=== PATIENT | male | born 1970 | race Caucasian/White ===

== ENCOUNTER 2018-12-16 08:37 | Outpatient (REF) | payer MEDICARE, MEDICAID, SELFPAY ==
[2018-12-16 13:03] LABS: ALT 29 U/L (12-78); AST 20 U/L (15-37); Alkaline Phosphatase 76 U/L (46-116); Bilirubin, Total 0.5 mg/dL (0.2-1.0); Cholesterol 165 mg/dL (50-200); HDL Cholesterol 43 mg/dL (40-60); LDL CHOLESTEROL 113 mg/dL (<100); Total Protein 7.2 g/dL (6.4-8.2); Triglyceride 70 mg/dL (30-150)
[2018-12-16 13:19] LABS: Bilirubin, Direct 0.12 mg/dL (0.00-0.20)
== END 2018-12-16 08:57 ==
LOC: NCHCN 08:37
PROVIDERS: PCP Nurse Practitioner Family; Visit Provider Nurse Practitioner Family
DX: E66.9 Obesity, unspecified (principal)
CPT/HCPCS: 80061; 80076; 83721

== ENCOUNTER 2020-03-01 12:43 | Emergency (ER) | payer MEDICARE, MEDICAID, SELFPAY ==
[2020-03-01] VITALS (52 sets, daily range): BP systolic 116–149; BP diastolic 66–100; PULSE 0–150; RESP 12–28; TEMP 36.6–37.3; O2SAT 91–100
[2020-03-01 13:28] LABS: Abs Immature Grans 0.02 k/cumm (0.0-0.09); Absolute Basophil Count 0.01 k/cumm (0.0-0.2); Absolute Eosinophil Count 0.01 k/cumm (0.0-0.7); Absolute Lymphocyte Count 1.33 k/cumm (1.2-3.4); Absolute Monocyte Count 0.67 k/cumm (0.11-0.7); Absolute Neutrophil Count 8.39 k/cumm (1.2-6.7); Basophils % 0.1; Eosinophils % 0.1; HCT 44.2 % (40.0-50.0); HGB 14.9 g/dL (13.5-17.5); Immature Grans % 0.2 %; Lymphocytes % 12.8; Mean Corp. HGB Concentration 33.7 g/dL (32.0-36.0); Mean Corpuscular Hemoglobin 27.6 pg (27.0-33.0); Mean Corpuscular Volume 81.9 fL (80-95); Mean Platelet Volume 10.9 fL (8.0-11.0); Monocytes % 6.4; Neutrophils % 80.4; Platelet Count 201 x1000/uL (130-400); RBC Distribution Width 13.2 % (11.8-14.1); White Blood Cell Count 10.43 k/cumm (4.4-10.8)
[2020-03-01] MEDS: Normal Saline 1,000 ML 1000 ML IV ×2 (13:28→17:34)
[2020-03-01 13:42] LABS: ALT 40 U/L (16-63); AST 21 U/L (15-37); Albumin 3.9 g/dL (3.4-5.0); Alkaline Phosphatase 69 U/L (46-116); Anion Gap 9.2 mmol/L (3-11); BUN 17 mg/dL (7-18); CO2 26.8 mmol/L (21.0-32.0); CREATININE 1.18 mg/dL (0.70-1.30); Chloride 101 mmol/L (98-107); Glucose 119 mg/dL (74-106); Potassium 3.8 mmol/L (3.5-5.1); Sodium 137 mmol/L (136-145); Total Protein 7.4 g/dL (6.4-8.2)
[2020-03-01] MEDS: diphenhydrAMINE 50 MG/ML VIAL 25 MG IVP (13:53)
[2020-03-01] MEDS: methylPREDNISolone SUCC 125 MG VIAL IVP (13:53)
[2020-03-01] MEDS: FAMOTIDINE 20 MG/50 ML BAG 200 MG IVPB (13:53)
[2020-03-01 13:57] LABS: TSH (W/Ref FT4) 0.43 uIU/mL (0.36-3.74)
[2020-03-01 14:07] LABS: Magnesium 1.9 mg/dL (1.8-2.4); Troponin I < 0.05 ng/mL (<0.06)
[2020-03-01 16:29] LABS: Troponin I < 0.05 ng/mL (<0.06)
[2020-03-01 16:42] LABS: D-Dimer 1349 ng/mlFEU (<500)
--- NOTE | 2020-03-01 16:47 | ED.GENADUL_ITS ---
Discharge Plan Disposition Patient Disposition: HOME Condition: Stable Discharge Details Chief Complaint: RashLesion Clinical Impression: Allergic reaction caused by a drug, Anxiety Primary Care Provider: Aleyda Hamilton ED Provider: Gladis Brooks Home Meds and New Rx's Prescriptions: New hydroxyzine HCl 25 mg tablet 25 mg PO BID PRN (Reason: itching) 5 Days Qty: 10 RF: 0 Discontinued amoxicillin 500 mg Tablet 500 mg TID RF: 0 No Action omeprazole 20 mg Capsule,Delayed Release(Dr/Ec) 20 mg DAILY RF: 0 prednisone 20 mg tablet 60 mg PO DAILY Qty: 12 RF: 0 clindamycin HCl 300 mg capsule 300 mg PO TID Qty: 30 RF: 0 Discharge Instructions Instructions: Anxiety (ED), General Allergic Reaction (ED) Additional Instructions: Follow up with primary care provider in 3-5 days. Return to ED sooner if any worsening or concerns. Increase oral fluids. Take medications as directed. Referrals: Aleyda Hamilton [Primary Care Provider] - Discharge Data Discharge Date/Time-TO BE ENTERED AT DEPARTURE: 03/01/20 19:15 Medical Decision Making <Gladis Brooks - Last Filed: 03/01/20 23:12> 1647: Assumed care of patient from outgoing provider TIFFANY Winston. Patient presented to the ED for shortness of breath, tachycardia. D-dimer is elevated at 1349, he does endorse some mild swelling noted to his lower extremities. Chest CT PE protocol ordered, BUN and creatinine are within normal limits. Patient is alert and oriented, in no acute distress. CT chest negative for pulmonary embolism. Patient reevaluated, discussed increasing fluids, will prescribe hydroxyzine for anxiety, itching. Patient does endorse an anxiety. Patient is hemodynamically stable, discussed strict return instructions and follow-up care, patient verbalized understanding. <TIFFANY Rubi - Last Filed: 03/02/20 15:49> This is a 49-year-old gentleman presenting to the emergency room for concern of allergic reaction. Patient presents with diffuse hives. Patient reports onset of hives yesterday morning. Did take Benadryl yesterday without relief. Patient reports mild associated midline chest pain which patient attributed to reflux as patient does have a history of reflux. He did take omeprazole this morning without relief. Patient currently taking amoxicillin for a tooth infection. Started the course 7 days ago. Patient denies any perioral or sensation of throat swelling. Patient denies shortness of breath. Patient does report he is aware of his heart rate being fast. Denies difficulty breathing. Denies abdominal pain, nausea or vomiting. Patient denies any obvious new exposures outside of recent course of antibiotics. Patient reports the rash began after eating breakfast. He reports he had Gumaro charms for breakfast which is very typical. Patient does report the rash is quite itchy. On physical exam rashes consistent with hives. Patient has no obvious focal swelling or signs of angioedema. Patient is notably tachycardic on initial presentation with a heart rate between 130 and 140. Given patient's complaints of chest pain we will plan to obtain an EKG. We will plan to provide IV fluid. We will plan to check labs. Patient's differential diagnosis of patient's chest pain does include allergic reaction, ACS although this seems less likely given patient's age and presentation today, reflux remains in the differential, dehydration, patient's tachycardia PE remains in the differential the patient describes no difficulty breathing or shortness of breath wheezing or cough. Denies exertional component. Patient's EKG reveals sinus tachycardia. Heart rate of 113. QTC noted to be 444. No ST segment changes. This was reviewed with Claudia Castillo. Patient's labs reveal no leukocytosis. CBC within normal limits. TSH normal. Initial troponin normal. Patient's chest x-ray reveals no acute abnormality. Reevaluation the patient reveals significant improvement in his hives. Patient reports his chest pain is improved. He does still have noted tachycardia although significantly improved from presentation will give additional 1 L of IV fluid. Patient was reevaluated by Dr. Castillo who does recommend addition of d-dimer. Also recommends GI cocktail. Patient signed out pending d-dimer results to onckrystle Sepulveda. HPI <Gladis Brooks - Last Filed: 03/01/20 23:12> General Date/Time Provider Initiated Documentation: 03/01/20 13:09 . Related Data Home Medications Medication Instructions Recorded Confirmed hydroxyzine HCl 25 mg PO BID PRN 5 Days #10 tab 03/01/20 omeprazole 20 mg DAILY 03/01/20 03/01/20 clindamycin HCl 300 mg PO TID #30 cap 03/02/20 prednisone 60 mg PO DAILY #12 tab 03/02/20 Previous Rx's Medication Instructions Recorded hydroxyzine HCl 25 mg PO BID PRN 5 Days #10 tab 03/01/20 clindamycin HCl 300 mg PO TID #30 cap 03/02/20 prednisone 60 mg PO DAILY #12 tab 03/02/20 Allergies Allergy/AdvReac Type Severity Reaction Status Date / Time amoxicillin Allergy Intermediate Unverified 03/01/20 13:58 General Stated Complaint: RashLesion ANGELICA: 3 <TIFFANY Rubi - Last Filed: 03/02/20 15:49> HPI Narrative: This is a 49-year-old patient presenting to the emergency room for complaints of rash. Patient reports he has been taking amoxicillin due to dental infection. Patient reports yesterday morning after breakfast he began to have a hive-like rash. Patient reports he had gumaro terms her breakfast which is very typical. Rash is described as itchy. Patient reports rash continues to spread today despite use of Benadryl at home. Patient has widespread hives. Patient denies any swelling around his mouth or involving his neck or throat. Patient denies difficulty breathing shortness of breath or wheezing. Patient does report chest pain anteriorly which he felt was likely due to reflux. He did take omeprazole this morning which was on relieving of his chest pain. Patient denies any radiating symptoms into neck, jaw, shoulder or back. Patient does report his heart does seem like it is racing, noted this morning, persistent. Patient denies any dizziness or lightheadedness. Patient denies any nausea or vomiting. Denies abdominal pain. Urinating without difficulty, moving bowels without difficulty. Eating and drinking without difficulty. No voice change. Patient denies fevers or chills. Patient denies any obvious Covid exposures recently. <TIFFANY Rubi - Last Filed: 03/02/20 15:49> All systems reviewed & are unremarkable except as noted in HPI and below PFSH <Gladis Brooks - Last Filed: 03/01/20 23:12> Social History Smoking/Tobacco Use Status: Never Alcohol Intake: current Alcohol Intake frequency: holidays/special occasions only Drug use: Never Substance use type: does not use Do you feel safe at home: Yes Do you feel safe in your relationship?: Yes <TIFFANY Rubi - Last Filed: 03/02/20 15:49> Narrative Exam Narrative: CONST: Healthy appearing patient, in no acute distress. Well hydrated. Alert and oriented. HENMT: Head nomocephalic, normal to inspection. Atraumatic. Hearing grossly normal. Normal facial exam. Oral mucosa normal. Tounge normal. Dentition normal. Normal posterior oropharynx. Uvula midline. EYES: General normal appearance. Alignment normal. Eyelids normal. Conjunctiva normal. Sclera normal. NECK: Normal visual inspection. FROM. No lymphadenopathy. Trachea midline. No Midline tenderness. CHEST: Normal insepection of the chest. RESP: Normal respiratory effort. Speaking full sentences. No cough. No wheezing. No retractions. Clear to auscaltation. Breath sound equal and present bilaterally. CARDIO: No JVD. Normal PMI. Tachycardic. Regular Rhythm. Normal peripheral pulses. GI: Normal inspection of abdomen. No distension. Soft. Nontender. Bowel sounds present in all 4 quadrants. No rebound. No gaurding. MUSCULOSKELETAL: Normal Gait. FROM of all extremities. Distal neurovascularly intact. Sensation intact distally. SKIN: Dry. Diffuse hives. Blanching, some patches of confluent hives. NEURO: Alert and awake. Speech clear. PSYCH: Normal affect. Cooperative. Course <Gladis Brooks - Last Filed: 03/01/20 23:12> Vital Signs Vital signs: Vital Signs Temperature 37.1 C 03/01/20 12:49 Respiratory Rate 16 03/01/20 12:49 Blood Pressure 136/85 03/01/20 12:49 Pulse Oximetry 95 03/01/20 12:49 Temperature 37.1 C 03/01/20 12:49 Temperature Source Tympanic 03/01/20 12:49 Pulse 113 H 03/01/20 16:01 Pulse 117 H 03/01/20 16:10 Respiratory Rate 18 03/01/20 16:10 Respiratory Effort Non-Labored 03/01/20 12:59 Blood Pressure 133/76 03/01/20 16:01 Blood Pressure Mean 88 03/01/20 16:01 Blood Pressure Position Sitting 03/01/20 12:49 Pulse Oximetry 94 L 03/01/20 16:10 Oxygen Delivery Method Room Air 03/01/20 12:49 Oxygen Flow Rate 0 03/01/20 12:49 Pain Level 5 03/01/20 12:49 Lab/Test Results Lab/Test Results: Laboratory Tests Range/Units 03/01/20 03/01/20 03/01/20 13:10 13:20 13:20 WBC (4.4-10.8) k/cumm 10.43 RBC (4.50-6.00) m/cumm 5.40 Hgb (13.5-17.5) g/dL 14.9 Hct (40.0-50.0) % 44.2 MCV (80-95) fL 81.9 MCH (27.0-33.0) pg 27.6 MCHC (32.0-36.0) g/dL 33.7 RDW (11.8-14.1) % 13.2 Plt Count (130-400) x1000/uL 201 MPV (8.0-11.0) fL 10.9 Immature Gran % % 0.2 Neutrophils % 80.4 Lymphocytes % 12.8 Monocytes % 6.4 Eosinophils % 0.1 Basophils % 0.1 Absolute Neutrophils (1.2-6.7) k/cumm 8.39 H Absolute Lymphocytes (1.2-3.4) k/cumm 1.33 Absolute Monocytes (0.11-0.7) k/cumm 0.67 Absolute Eosinophils (0.0-0.7) k/cumm 0.01 Absolute Basophils (0.0-0.2) k/cumm 0.01 D-Dimer (<500) ng/mlFEU Sodium (136-145) mmol/L 137 Potassium (3.5-5.1) mmol/L 3.8 Chloride (98-107) mmol/L 101 Carbon Dioxide (21.0-32.0) mmol/L 26.8 Anion Gap (3-11) mmol/L 9.2 BUN (7-18) mg/dL 17 Creatinine (0.70-1.30) mg/dL 1.18 Estimated GFR/1.73 m2 (mL/min/1.73m2) >= 60.00 Glucose (74-106) mg/dL 119 H Calcium (8.5-10.1) mg/dL 9.0 Magnesium (1.8-2.4) mg/dL Total Bilirubin (0.2-1.0) mg/dL 1.0 AST (15-37) U/L 21 ALT (16-63) U/L 40 Alkaline Phosphatase (46-116) U/L 69 Troponin I (<0.06) ng/mL Total Protein (6.4-8.2) g/dL 7.4 Albumin (3.4-5.0) g/dL 3.9 TSH (0.36-3.74) uIU/mL 0.43 Range/Units 03/01/20 03/01/20 03/01/20 13:20 13:20 16:00 WBC (4.4-10.8) k/cumm RBC (4.50-6.00) m/cumm Hgb (13.5-17.5) g/dL Hct (40.0-50.0) % MCV (80-95) fL MCH (27.0-33.0) pg MCHC (32.0-36.0) g/dL RDW (11.8-14.1) % Plt Count (130-400) x1000/uL MPV (8.0-11.0) fL Immature Gran % % Neutrophils % Lymphocytes % Monocytes % Eosinophils % Basophils % Absolute Neutrophils (1.2-6.7) k/cumm Absolute Lymphocytes (1.2-3.4) k/cumm Absolute Monocytes (0.11-0.7) k/cumm Absolute Eosinophils (0.0-0.7) k/cumm Absolute Basophils (0.0-0.2) k/cumm D-Dimer (<500) ng/mlFEU 1349 H Sodium (136-145) mmol/L Potassium (3.5-5.1) mmol/L Chloride (98-107) mmol/L Carbon Dioxide (21.0-32.0) mmol/L Anion Gap (3-11) mmol/L BUN (7-18) mg/dL Creatinine (0.70-1.30) mg/dL Estimated GFR/1.73 m2 (mL/min/1.73m2) Glucose (74-106) mg/dL Calcium (8.5-10.1) mg/dL Magnesium (1.8-2.4) mg/dL 1.9 Total Bilirubin (0.2-1.0) mg/dL AST (15-37) U/L ALT (16-63) U/L Alkaline Phosphatase (46-116) U/L Troponin I (<0.06) ng/mL < 0.05 < 0.05 Total Protein (6.4-8.2) g/dL Albumin (3.4-5.0) g/dL TSH (0.36-3.74) uIU/mL
[2020-03-01] MEDS: Omnipaque 350 MG/ML 100 ML BTL IJ (17:34)
--- NOTE | 2020-03-01 17:45 | DI.CT_ITS ---
EXAM: CT CHEST PE CTA CLINICAL HISTORY: R/O PE. TECHNIQUE: Imaging Protocol: Axial CT angiography was performed with multi-slice acquisition and mu lti-planar and/or 3D reconstructions. CONTRAST MATERIAL: Intravenous: Omnipaque 350 Contrast volume:100 mL COMPARISON: No exams were available for comparison FINDINGS: Pulmonary Arteries: No evidence of filling defect to suggest pulmonary emboli. Tracheobronchial tree: Patent where visualized. Mediastinum and Parul: No dominant adenopathy or fluid collection. Pulmonary parenchyma: No consolidation or dominant measurable mass. No architectural distortion. Pleura: No effusion or pneumothorax. Heart: The heart is not dilated. No coronary artery calcifications are seen. No significant pericardi al effusion. Aorta: Thoracic aorta non-dilated. No evidence of aneurysm or dissection. Upper abdomen: Unremarkable. Bones: Within normal limits for the patient's age. IMPRESSION: No evidence of pulmonary embolism, thoracic aortic dissection or aneurysm. RADIATION DOSE DELIVERED: 447.57mGy.cm Total DLP 447.57mGy.cm Total DLP DATA REPOSITORY: All CT scans at this facility are submitted to the National Radiology Data Registry (NRDR) Dose Index Registry (DIR) with the [employer] (A[employer]). RADIATION OPTIMIZATION: All CT scans at this facility use at least one of these dose optimization te chniques: automated exposure control; mA and/or kV adjustment per patient size (includes targeted exa ms where dose is matched to clinical indication); or iterative reconstruction.
--- NOTE | 2020-03-01 18:11 | DI.VRAD_ITS ---
PROCEDURE INFORMATION: Exam: CT Angiography Chest With Contrast Exam date and time: 03/01/2020 5:33 PM Age: 49 years old Clinical indication: Other: R/O pe, elevated d-dimer TECHNIQUE: Imaging protocol: Computed tomographic angiography of the chest with intravenous contrast. 3D rendering: MIP and/or 3D reconstructed images were created by the technologist. Radiation optimization: All CT scans at this facility use at least one of these dose optimization techniques: automated exposure control; mA and/or kV adjustment per patient size (includes targeted exams where dose is matched to clinical indication); or iterative reconstruction. Contrast material: OMNIPAQUE 350; Contrast volume: 100 ml; Contrast route: IV; COMPARISON: No relevant prior studies available. FINDINGS: Pulmonary arteries: No evidence of pulmonary embolism . Aorta: No aortic aneurysm. No aortic dissection. Lungs: No focal consolidation. Pleural space: No pleural effusion. No pneumothorax. Heart: No cardiomegaly. No pericardial effusion. Lymph nodes: No pathologically enlarged lymph nodes. Bones/joints: No acute fracture. No destructive bone lesion. Soft tissues: Unremarkable. IMPRESSION: No evidence of pulmonary embolism . Dictated and Authenticated by: Tevin Nicholson MD. Ordering:ARELIS Griffith MD
== END 2020-03-01 19:15 | disposition home or self-care (01) ==
PROVIDERS: Physician Assistant; Emergency Provider Registered Nurse Emergency; PCP Nurse Practitioner Family
DX: L50.0 Allergic urticaria (principal); R79.1 Abnormal coagulation profile; R00.0 Tachycardia, unspecified; T36.0X5A Adverse effect of penicillins, initial encounter
CPT/HCPCS: 36415; 71275; 80053; 93005; 96361; 96365; 96366; 96375; 99285; 83735; 84443; 84484; 85025; 85379; 93010; 99284; J1200; J2930; J3490

== ENCOUNTER 2020-03-02 08:35 | Emergency (ER) | payer MEDICARE, MEDICAID, SELFPAY ==
[2020-03-02 08:38] VITALS: BP 165/89; PULSE 104; RESP 18; TEMP 37.2; O2SAT 96
--- NOTE | 2020-03-02 08:57 | W.ED.GENAD ---
Discharge Plan Disposition Patient Disposition: HOME Condition: Stable Discharge Details Chief Complaint: Allergic Clinical Impression: Allergic reaction caused by a drug Primary Care Provider: Aleyda Hamilton ED Provider: Naz Nichole Home Meds and New Rx's Prescriptions: New prednisone 20 mg tablet 60 mg PO DAILY Qty: 12 RF: 0 clindamycin HCl 300 mg capsule 300 mg PO TID Qty: 30 RF: 0 Continued omeprazole 20 mg Capsule,Delayed Release(Dr/Ec) 20 mg DAILY RF: 0 hydroxyzine HCl 25 mg tablet 25 mg PO BID PRN (Reason: itching) 5 Days Qty: 10 RF: 0 Discharge Instructions Instructions: General Allergic Reaction (ED) Additional Instructions: Observe closely for any worsening symptoms as discussed. Have immediate return for any worsening. Continue steroids once daily in the morning as discussed. You did have your dose for today. Continue hydroxyzine for itching if needed. Use Pepcid [id number] to help blunt allergic reaction as discussed. Use clindamycin as prescribed to replace amoxicillin you are previously using. Use caution if you develop any diarrhea to have reevaluation with a primary care doctor in the emergency room as discussed. Follow-up with your dentist. Please have prompt follow-up with your primary care doctor for concern of elevated blood sugar. Please begin lifestyle modifications specifically increase exercise, decrease sugar and carbohydrates in your diet as discussed. Rest activities as tolerated. Return for any worsening, concerns or alarming symptoms sooner if needed Medical Decision Making <Manuelito Melvin MD - Last Filed: 03/02/20 09:03> I had a [id number] encounter with the patient. I evaluated the patient. I discussed case with ORDER CONTROL CLERK BLOOD BANK/PA and I reviewed ORDER CONTROL CLERK BLOOD BANK/PA note and agree with note as documented <TIFFANY Rubi - Last Filed: 03/02/20 10:48> Is a 49-year-old patient returning to the emergency room for concerns of lip swelling which he noted this morning. Patient reports fullness of upper and lower lips. Denies any tongue or throat involvement. Denies difficulty breathing shortness breath or wheezing. Patient was seen in the emergency room yesterday for diffuse hives and chest pain in addition to noted tachycardia. Patient reports chest pain is improved, tachycardia is improved. Patient using hydroxyzine at home for symptomatic relief which was prescribed yesterday. See HPI for details of patient's history today. On exam patient has very minimal swelling of the upper and lower lips noted on physical exam however patient reports sensation of swelling through upper and lower lips noted this morning. Patient is in no distress. Has no difficulty breathing or voice change. Patient concerned due to sensation of swelling seeking reevaluation. Patient reports his hives in general are significantly improved. Patient has no other complaints at this time. On exam patient's mucous membranes are notably dry specifically his oral mucous membranes. Will hydrate by mouth as patient is having no difficulty eating or drinking. Will check a fingerstick blood sugar. Patient's fingerstick is noted to be 147. Patient did have a breakfast shake this morning. Although this is not a fasting blood sugar we did discuss blood sugar management as patient does report he had noted to be borderline hypoglycemic in the past. Patient has been concerned about the possibility of increased blood sugar due to his PCP report in the past. We did discuss lifestyle modification specifically increase in exercise as BMI is noted to be 32. We did discuss decrease sugar and carbohydrates in the diet. Patient reports his understanding and will begin lifestyle modifications following up with his PCP for reevaluation of his blood sugar. Patient observed in the emergency room with no worsening after initial dose of prednisone. Patient feels appropriate for discharge home at this time. No airway compromise. Patient's vital signs significantly improved. Will provide 4 additional days of prednisone as patient had an initial dose here. Will continue hydroxyzine. Discussed Pepcid [id number] for symptomatic relief. Patient discontinued amoxicillin and still has mild complaints of dental pain is concerned he may require dental extraction. Will replace amoxicillin with clindamycin as patient does have persistent symptoms although he does discuss improved symptoms after using 5 to 6 days of amoxicillin. Discussed clindamycin use as well as concerns of colitis associated with clindamycin. Patient has tolerated clindamycin in the past. Feels comfortable using antibiotic and observing for any diarrhea. Patient advised to follow-up with his dentist. The patient was stable and requested discharge. Prior to discharge, my usual and customary return precautions were reviewed with the patient - this included follow-up instructions and reasons to return to the Emergency Department if conditions worsens, does not improve as expected, or other new concerns arise. HPI <Manuelito Melvin MD - Last Filed: 03/02/20 09:03> General Date/Time Provider Initiated Documentation: 03/02/20 08:36. Related Data Home Medications Medication Instructions Recorded Confirmed hydroxyzine HCl 25 mg PO BID PRN 5 Days #10 tab 03/01/20 omeprazole 20 mg DAILY 03/01/20 03/01/20 clindamycin HCl 300 mg PO TID #30 cap 03/02/20 prednisone 60 mg PO DAILY #12 tab 03/02/20 Previous Rx's Medication Instructions Recorded hydroxyzine HCl 25 mg PO BID PRN 5 Days #10 tab 03/01/20 clindamycin HCl 300 mg PO TID #30 cap 03/02/20 prednisone 60 mg PO DAILY #12 tab 03/02/20 Allergies Allergy/AdvReac Type Severity Reaction Status Date / Time amoxicillin Allergy Intermediate Unverified 03/01/20 13:58 <TIFFANY Rubi - Last Filed: 03/02/20 10:48> HPI Narrative: This is a 49-year-old patient returning to the emergency room today for concern of lip swelling which he noted this morning. Patient was seen in the emergency room yesterday for concerns of allergic reaction which developed 1 day prior after taking a course of amoxicillin. Patient presented to the emergency room yesterday with diffuse hives. Patient had itching associated. Patient was provided Solu-Medrol, Pepcid and Benadryl which significantly improved his hives. Patient did have a notable tachycardia yesterday for which she ultimately had a d-dimer which was positive and a CTA which was unremarkable for pulmonary embolism. Patient was discharged home on hydroxyzine. Patient reports compliance with hydroxyzine, he did take a dose this morning. Reports that the rash is significantly improved. Denies difficulty breathing or shortness of breath or wheezing. Denies nausea, vomiting or abdominal pain. Denies any chest pain or back pain. Patient denies headache or dizziness. Patient speaking in clear sentences. No voice change. Patient does report this morning he felt his lips were both swollen and full. He tried drinking and noted sensation change through his lips upper and lower. Patient does have moderate facial hair but he does report a he notes diffuse swelling. No tongue or throat involvement. General Stated Complaint: Allergic ANGELICA: 3 <TIFFANY Rubi Last Filed: 03/02/20 10:48> All systems reviewed & are unremarkable except as noted in HPI and below PFSH <Manuelito Melvin MD - Last Filed: 03/02/20 09:03> Social History Smoking/Tobacco Use Status: Never Alcohol Intake: current Alcohol Intake frequency: holidays/special occasions only Drug use: Never Substance use type: does not use Do you feel safe at home: Yes Do you feel safe in your relationship?: Yes <TIFFANY Rubi - Last Filed: 03/02/20 10:48> Narrative Exam Narrative: CONST: Healthy appearing patient, in no acute distress. Well hydrated. Alert and oriented. HENMT: Head nomocephalic, normal to inspection. Atraumatic. Hearing grossly normal. External ear canal no erythema or swelling. TM normal bilaterally. Nose normal to inspection. No rhinnorhea. Normal facial exam. Patient with mild swelling of upper and lower lips per patient, oral mucosa normal. Tounge normal. Dentition normal. Normal posterior oropharynx. Uvula midline. EYES: General normal appearance. Alignment normal. Eyelids normal. Conjunctiva normal. Sclera normal. NECK: Normal visual inspection. FROM. No lymphadenopathy. Trachea midline. No Midline tenderness. CHEST: Normal insepection of the chest. RESP: Normal respiratory effort. Speaking full sentences. No cough. No wheezing. No retractions. Clear to auscaltation. Breath sound equal and present bilaterally. CARDIO: No JVD. Normal PMI. Regular Rate. Regular Rhythm. Normal peripheral pulses. MUSCULOSKELETAL: Normal Gait. FROM of all extremities. Distal neurovascularly intact. Sensation intact distally. SKIN: Normal. Dry. Minimal hives, significantly improved compared to yesterday NEURO: Alert and awake. Speech clear. PSYCH: Normal affect. Cooperative. <TIFFANY Rubi - Last Filed: 03/02/20 10:48> Vital Signs Vital signs: Vital Signs Temperature 37.2 C 03/02/20 08:38 Pulse 104 H 03/02/20 08:38 Respiratory Rate 18 03/02/20 08:38 Blood Pressure 165/89 H 03/02/20 08:38 Pulse Oximetry 96 03/02/20 08:38 Temperature 37.2 C 03/02/20 08:38 Temperature Source Tympanic 03/02/20 08:38 Pulse 104 H 03/02/20 08:38 Respiratory Rate 18 03/02/20 08:38 Respiratory Effort 03/02/20 08:41 Respiratory Pattern Normal 03/02/20 08:41 Blood Pressure 165/89 H 03/02/20 08:38 Blood Pressure Position Sitting 03/02/20 08:38 Pulse Oximetry 96 03/02/20 08:38 Oxygen Delivery Method Room Air 03/02/20 08:38 Oxygen Flow Rate 0 03/02/20 08:38 Pain Level 0 03/02/20 08:38
[2020-03-02 10:42] VITALS: BP 137/86; PULSE 86; RESP 18; TEMP 36.9; O2SAT 97
--- NOTE | 2020-03-03 07:17 | NUR.NOTE ---
Nursing Note: Patient called stating the allergic reaction got worse last night. He is having the symptoms again, with the rapid heart rate. Stated he took hydroxyzine 25mg, and prednisone x3 20mg. But still does not feel well. Patient was told to return. Jaky Arnold.
== END 2020-03-02 10:44 | disposition home or self-care (01) ==
PROVIDERS: Emergency Provider Physician Assistant; PCP Nurse Practitioner Family
DX: R22.0 Localized swelling, mass and lump, head (principal); L50.0 Allergic urticaria; T36.0X5A Adverse effect of penicillins, initial encounter
CPT/HCPCS: 99283

== ENCOUNTER 2020-03-03 08:23 | Emergency (ER) | payer MEDICARE, MEDICAID, SELFPAY ==
[2020-03-03] VITALS (29 sets, daily range): BP systolic 121–140; BP diastolic 69–92; PULSE 79–104; RESP 12–27; TEMP 36.6; O2SAT 84–98
--- NOTE | 2020-03-03 08:32 | ED.GENADUL_ITS ---
Discharge Plan Disposition Patient Disposition: HOME Condition: Stable Discharge Details Chief Complaint: Allergic Clinical Impression: Allergic reaction caused by a drug, Anxiety Primary Care Provider: Aleyda Hamilton ED Provider: Claudia Castillo Home Meds and New Rx's Prescriptions: Continued omeprazole 20 mg Capsule,Delayed Release(Dr/Ec) 20 mg DAILY RF: 0 hydroxyzine HCl 25 mg tablet 25 mg PO BID PRN (Reason: itching) 5 Days Qty: 10 RF: 0 prednisone 20 mg tablet 60 mg PO DAILY Qty: 12 RF: 0 clindamycin HCl 300 mg capsule 300 mg PO TID Qty: 30 RF: 0 Discharge Instructions Instructions: Anxiety (ED), General Allergic Reaction (ED) Additional Instructions: Drink plenty of fluids and get plenty of rest. Take either Benadryl or your hydroxyzine as needed and directed for nausea and vomiting. If you are feeling anxious and having difficulty sleeping, you can take the ativan. Finish your prednisone as directed. You can call your dentist on Thursday morning to discuss whether you should start taking the clindamycin or whether your dental infection has cleared. Follow-up with your primary care doctor in 1 week. Return to the emergency department with any worsening or new concerning symptoms. Discharge Data Discharge Physician: Claudia Castillo Medical Decision Making [id number] -- 49-year-old male with no significant past medical history currently being treated for allergic reaction likely from penicillin with prednisone and hydroxyzine presents for the third day in a row for continued pruritic rash and feeling of tachycardia. Heart rate 80s on arrival. EKG notes a rate of 88, sinus with no acute ST ischemic change. Patient appears anxious. Airway intact. He presented yesterday with concern for lip swelling but he states this is now resolved. Normal mucous membranes and does not appear consistent with Mc-Derick's. He has urticaria noted to the neck and chest as well as volar wrists and palms which do appear improved compared to when I saw him 2 days ago. I was not here yesterday when he presented with lip swelling. He was given 50 mg of Benadryl per EMS just prior to arrival. Screening labs obtained on arrival and noted white blood cell count of 14 which is likely reactive stress or allergic response. Will give an additional dose of steroids, Ativan, fluids and reassess. 1115 --patient reassessed-he states he feels much better. Airway intact. Rash significantly improved. Patient states he feels good to go home. He is advised to take prednisone until finished. He states he was hesitant to start the cli ndamycin due to taking another medication. As he took penicillin for 7 days, and there is no evidence of abscess or active dental infection, he was advised to call his dentist on Thursday for follow-up and that he can likely hold on the clindamycin for now. He is advised to take either the Benadryl or the hydroxyzine as needed for itching. We will send home with Ativan to take as needed for feelings of anxiety were as needed for sleep. Advised to follow up with the primary care doctor for re-evaluation. Usual and customary return precautions given prior to discharge. Medical Records Medical records reviewed: Yes I reviewed the patient's medical records. ECG Data Attestation: I personally reviewed and interpreted this ECG (s) as follows: Interpretation: Rate of 88, sinus, no acute ST elevation or depression. No acute change from previous EKG. MS 156. QTc 428. QRS 106. HPI General Mode of arrival: ambulatory . Date/Time Provider Initiated Documentation: 03/03/20 08:31 . Limitations to Documentation: no limitations . Information obtained by: patient . HPI Narrative: Pt is a 49yo M with no significant past medical history presents for itchy rash to arms, neck and chest for the past 3 days. This is patient's third visit 3 days in a row for similar symptoms. Patient was placed on penicillin for dental infection last week and after several days of doses developed itchy rash to torso and extremities. He was here 2 days ago and had fluids, prednisone and Benadryl and had negative work-up including CT chest and was sent home with prednisone and hydroxyzine. He returned yesterday for concern for lip swelling and was given additional prednisone. Patient states he took hydroxyzine and prednisone this morning and his symptoms are improved. He states he also became concerned about his heart rate this morning and was concerned that it was fast. Denies any fever, cough, chest pain, shortness of breath, vomiting, abdominal pain. He also states he was given a prescription for clindamycin to take for his dental infection in place of penicillin but states he has not yet started this due to concern for starting another medication. He states his dental pain and swelling has improved denies any fever. Related Data Home Medications Medication Instructions Recorded Confirmed hydroxyzine HCl 25 mg PO BID PRN 5 Days #10 tab 03/01/20 03/03/20 omeprazole 20 mg DAILY 03/01/20 03/03/20 clindamycin HCl 300 mg PO TID #30 cap 03/02/20 03/03/20 prednisone 60 mg PO DAILY #12 tab 03/02/20 03/03/20 Previous Rx's Medication Instructions Recorded hydroxyzine HCl 25 mg PO BID PRN 5 Days #10 tab 03/01/20 clindamycin HCl 300 mg PO TID #30 cap 03/02/20 prednisone 60 mg PO DAILY #12 tab 03/02/20 Allergies Allergy/AdvReac Type Severity Reaction Status Date / Time amoxicillin Allergy Intermediate Unverified 03/03/20 08:30 General Stated Complaint: Allergic ANGELICA: 3 Review of Systems All systems reviewed & are unremarkable except as noted in HPI and below Constitutional Constitutional: Reports as per HPI, Denies chills and Denies fever(s) Eyes Eyes: Denies blurry vision ENT Ears, Nose, Mouth, and Throat: Denies dizziness, Denies sore throat and Denies throat swelling Cardiovascular Cardiovascular: Denies chest pain and Denies dyspnea Respiratory Respiratory: Denies cough and Denies dyspnea Gastrointestinal Gastrointestinal: Denies abdominal pain, Denies diarrhea and Denies vomiting Genitourinary Genitourinary: Denies hematuria and Denies dysuria Musculoskeletal Musculoskeletal: Denies back pain and Denies numbness Integumentary/Breasts Skin/Breast: Denies lesions and Reports rash Neurologic Neurologic: Denies dizziness, Denies localized weakness and Denies numbness Allergic/Immunologic Allergic/Immunologic: Denies throat swelling COUNT INCLUDES THE [facility] Medical History (Updated 03/03/20 @ 11:27 by Claudia Castillo DO) No significant past medical history (Acute) Surgical History (Updated 03/03/20 @ 09:32 by Claudia Castillo DO) No significant past surgical history (Acute) Social History Smoking/Tobacco Use Status: Never Alcohol Intake: current Alcohol Intake frequency: holidays/special occasions only Drug use: Never Substance use type: does not use Do you feel safe at home: Yes Do you feel safe in your relationship?: Yes Exam Const General: cooperative, healthy appearing and anxious Orientation: alert, awake and oriented x3 HENMT Head: normal to inspection Ears: hearing grossly normal bilaterally and external ears normal General nose exam: external nose normal Face and sinus: normal facial exam Mouth: oral mucosae normal, lip normal, oropharynx normal, moist mucous membranes, no drooling and no trismus Teeth and gingiva: dentition normal and other (No erythema, edema, abscess noted around approximately tooth #19.) Throat: posterior oropharynx normal Eyes General: appearance normal, both eyes and all related structures EOM: EOM intact bilaterally Neck Neck: normal visual inspection and No submandibular swelling Lymphatic: no lymphadenopathy noted Chest Chest: normal inspection of the chest and no tenderness Resp Effort & Inspection: normal respiratory effort and able to speak in complete sentences Auscultation: clear to auscultation bilaterally Cardio Rate: regular rate Rhythm: regular rhythm GI Inspection: normal to inspection Palpation: soft, not firm, not rigid and nontender Auscultation: normal bowel sounds Back/Spine/Pelvis Thoracic/Lumbar Spine: thoracic and lumbar spine normal to inspection Skin Rashes: rashes noted (urticaria/hives noted to neck, upper anterior chest, volar wrists/palms b/l) Neuro General: patient alert, patient awake and patient oriented x3 Cognition: normal cognition Speech: speech normal Motor: muscle tone normal throughout Sensory Exam: no sensory deficits noted Extrem General: normal to inspection, full ROM, capillary refill normal, no calf tenderness bilaterally and no edema Psych Appearance: grossly normal Mental Status: mental status grossly normal Speech and Movement: speech and movement normal Affect: normal affect Course Vital Signs Vital signs: Vital Signs Temperature 97.9 F 03/03/20 08:26 Pulse 92 H 03/03/20 08:26 Respiratory Rate 16 03/03/20 08:26 Blood Pressure 127/90 03/03/20 08:26 Pulse Oximetry 96 03/03/20 08:26 Temperature 97.9 F 03/03/20 08:26 Temperature Source Skin 03/03/20 08:26 Pulse 92 H 03/03/20 08:26 Respiratory Rate 16 03/03/20 08:26 Respiratory Effort Non-Labored 03/03/20 08:26 Blood Pressure 127/90 03/03/20 08:26 Blood Pressure Position Supine 03/03/20 08:26 Pulse Oximetry 96 03/03/20 08:26 Pain Level 0 03/03/20 08:26
[2020-03-03 08:44] LABS: Abs Immature Grans 0.07 k/cumm (0.0-0.09); Absolute Basophil Count 0.01 k/cumm (0.0-0.2); Absolute Eosinophil Count 0.39 k/cumm (0.0-0.7); Absolute Monocyte Count 1.17 k/cumm (0.11-0.7); Absolute Neutrophil Count 10.58 k/cumm (1.2-6.7); Basophils % 0.1; Eosinophils % 2.7; HCT 41.3 % (40.0-50.0); HGB 13.5 g/dL (13.5-17.5); Immature Grans % 0.5 %; Lymphocytes % 15.5; Mean Corp. HGB Concentration 32.7 g/dL (32.0-36.0); Mean Corpuscular Hemoglobin 27.3 pg (27.0-33.0); Mean Corpuscular Volume 83.4 fL (80-95); Mean Platelet Volume 12.4 fL (8.0-11.0); Monocytes % 8.1; Neutrophils % 73.1; Platelet Count 126 x1000/uL (130-400); RBC 4.95 m/cumm (4.50-6.00); RBC Distribution Width 13.3 % (11.8-14.1); White Blood Cell Count 14.47 k/cumm (4.4-10.8)
[2020-03-03 08:47] LABS: Absolute Lymphocyte Count 2.24 k/cumm (1.2-3.4)
[2020-03-03 08:59] LABS: ALT 35 U/L (16-63); AST 29 U/L (15-37); Albumin 3.7 g/dL (3.4-5.0); Alkaline Phosphatase 65 U/L (46-116); Anion Gap 9.3 mmol/L (3-11); BUN 20 mg/dL (7-18); Bilirubin, Total 0.5 mg/dL (0.2-1.0); CO2 28.7 mmol/L (21.0-32.0); CREATININE 1.07 mg/dL (0.70-1.30); Calcium 8.9 mg/dL (8.5-10.1); Chloride 103 mmol/L (98-107); Glucose 96 mg/dL (74-106); Potassium 3.4 mmol/L (3.5-5.1); Sodium 141 mmol/L (136-145); Total Protein 7.4 g/dL (6.4-8.2); Troponin I < 0.05 ng/mL (<0.06)
[2020-03-03] MEDS: Normal Saline Flush 10 ML SYR IVP (09:00)
[2020-03-03] MEDS: Normal Saline 1,000 ML 1000 ML IV (09:00)
[2020-03-03] MEDS: methylPREDNISolone SUCC 125 MG VIAL 60 MG IVP (10:20)
[2020-03-03] MEDS: LORazepam 2 MG/ML VIAL 0.5 MG IVP (10:25)
[2020-03-03] MEDS: LORazepam 0.5 MG TAB 2 MG PO (11:30)
--- NOTE | 2020-03-03 15:35 | CMPROGNOTE_ITS ---
- If Service Date Differs Date of service: 03/03/20 Time of Service: 15:35 Care Management Progress Note CM was paged to help coordinate a ride home for Ar. CM called [facility] [[email or web address]] and was able to obtain him a ride home at 14:00 via [facility] [[email or web address]] private vehicle. Ar has [employer] which will cover the expense of the ride.
--- NOTE | 2020-03-03 15:35 | PDOC.ERCMPRO ---
- If Service Date Differs Date of service: 03/03/20 Time of Service: 15:35 Care Management Progress Note CM was paged to help coordinate a ride home for Ar. CM called [facility] and was able to obtain him a ride home at 14:00 via [facility] private vehicle. Ar has [employer] which will cover the expense of the ride.
== END 2020-03-03 11:40 | disposition home or self-care (01) ==
PROVIDERS: Emergency Provider Physician Assistant; PCP Nurse Practitioner Family
DX: R00.0 Tachycardia, unspecified (principal); R21 Rash and other nonspecific skin eruption; T36.0X5A Adverse effect of penicillins, initial encounter
CPT/HCPCS: 36415; 80053; 93005; 96361; 96374; 96375; 99284; 83735; 84484; 85025; 93010; J2060; J2930

== ENCOUNTER 2025-03-21 17:38 | Outpatient (REF) | payer MEDICARE, MEDICAID, SELFPAY ==
[2025-03-21 16:04] LABS: HCT 41.9 % (40.0-50.0); HGB 13.5 g/dL (13.5-17.5); MCH 27.4 pg (27.0-33.0); MCHC 32.2 % (32.0-36.0); MCV 85 fL (80-95); MPV 12.3 fL (8.0-11.0); Platelet Count 168 10^3/uL (130-400); RBC 4.92 10^6/uL (4.36-5.78); RDW 12.6 % (11.8-14.1); RDW-SD 38.9 fL; WBC 4.68 10^3/uL (4.4-10.8)
[2025-03-21 16:56] LABS: ALT 23 U/L (16-63); AST 13 U/L (15-37); Albumin 4.3 g/dL (3.4-5.0); Alkaline Phosphatase 83 U/L (46-116); Anion Gap 8.3 mmol/L (3-11); BUN 9 mg/dL (7-18); Bilirubin, Total 0.6 mg/dL (0.2-1.0); CO2 30.7 mmol/L (21.0-32.0); Calcium 9.1 mg/dL (8.5-10.1); Calculated LDL 118 mg/dL (<100); Chloride 103 mmol/L (98-107); Cholesterol 188 mg/dL (<200); Estimated GFR 101.49 (mL/min/1.73m2); Glucose 85 mg/dL (74-106); HDL Cholesterol 54 mg/dL (>or=40); Potassium 3.6 mmol/L (3.5-5.1); Sodium 142 mmol/L (136-145); Total Protein 7.3 g/dL (6.4-8.2); Triglyceride 80 mg/dL (<150)
[2025-03-21 22:51] LABS: PSA, Screening 0.5 ng/mL (<=3.5)
== END 2025-03-21 17:39 | disposition home or self-care (01) ==
LOC: NCHCN 17:38
PROVIDERS: PCP Nurse Practitioner Family; Visit Provider Nurse Practitioner Family
DX: Z00.00 Encounter for general adult medical examination without abnormal findings (principal); Z12.5 Encounter for screening for malignant neoplasm of prostate
CPT/HCPCS: 80053; 80061; 84153; 85027